=== PATIENT | female | born 1940 | race Caucasian/White ===

== ENCOUNTER 2022-09-02 13:15 | Inpatient (IN) ==
[~2022-09-02 13:15] MED LIST: Buffered Lidocaine 1% SYRIN 1 ml INTRADERM ONE; Ertapenem 1 GM in NS 0.9% 50 ML BAG IVPB SCH; HYDROmorphone 1 MG/1 ML SYRINGE IV PRN; Lactated Ringers 1000 ml BAG 1,000 ML IV SCH; Lidocaine 2% PF 5 ML VIAL ONE; Naloxone 0.4 mg VIAL 0.4 mg/ml 1 ml VIAL IV PRN; Ondansetron 4 mg VIAL 2 MG/ML 2 ml VIAL IV PRN; Propofol 10 MG/ML 20 ML BTL ONE; Rocuronium 50 mg VIAL 10 mg/ml 5 ml VIAL (50 mg) ONE; fentaNYL 100 mcg/2 ml 50 MCG/ML VIAL IV PRN; fentaNYL 250 mcg/5 ml 50 MCG/ML 5 ml VIAL (250 MCG) ONE
[2022-09-02] MEDS ORDERED: Heparin 5000 UNITS/ML 1 mL VIAL ONE (13:25)
[2022-09-02] MEDS ORDERED: Dexmedetomidine 200 mcg/2 ml 2 ml VIAL (200 mcg) ONE (13:31)
[2022-09-02] MEDS ORDERED: fentaNYL 100 mcg/2 ml 50 MCG/ML VIAL ONE (13:31)
[2022-09-02] MEDS ORDERED: Midazolam 2 mg/2 ml VIAL 1 mg/ml 2 ml VIAL (2 mg) ONE (13:32)
[2022-09-02] MEDS ORDERED: Bupivacaine 0.25% SDV 30 ML ONE (13:35)
[2022-09-02] MEDS ORDERED: Bupivacaine 0.5% 50 ML MDV VIAL ONE (13:36)
[2022-09-02] MEDS ORDERED: Sterile Water for Inj 20 ML ONE (13:42)
[2022-09-02] MEDS ORDERED: Bupivacaine 0.5% SDV PF 30ML VIAL ONE (13:42)
[2022-09-02 13:53] LABS: ABS Lymphocytes 1.5 10^3/uL (1.0-4.8); ABS Monocytes 0.5 10^3/uL (0.0-0.9); Eosinophil % 0.2 %; Hematocrit 33.4 % (35-45); Hemoglobin 11.2 g/dL (11.5-14.3); Lymphocyte % 14.5 %; Mean Corpuscular Hemoglobin 28.9 pg (27-33); Mean Corpuscular Hgb Conc 33.4 g/dL (31-36); Mean Corpuscular Volume 86.6 fL (80-97); Mean Platelet Volume 7.6 fL (7.5-11.2); Platelet Count 405 10^3/uL (150-450); Red Blood Count 3.86 10^6/uL (3.63-4.92); Red Cell Distribution Width 18.1 % (12-17); White Blood Count 10.1 10^3/uL (3.8-11.8)
[2022-09-02] MEDS ORDERED: Lidocaine 1% w EPI 1:100,000 MDV 20 ML VIAL ONE (14:18)
[2022-09-02] MEDS ORDERED: Bupivacaine 0.25% w/EPI 10 ML SDV ONE (14:19)
[2022-09-02] MEDS ORDERED: Lidocaine 1% VIAL 10 MG/ML VIAL 30 ML ONE (14:20)
[2022-09-02 14:46] LABS: Rapid COVID-19 Molecular Undetected (Undetected)
[2022-09-02] MEDS ORDERED: Glycopyrrolate IV 0.2 MG/ML 1 ML VIAL ONE (16:00)
[2022-09-02] MEDS ORDERED: Dexamethasone IV 4 MG/ML VIAL 1 ml VIAL ONE (16:42)
[2022-09-02] MEDS ORDERED: Ondansetron 4 mg VIAL 2 MG/ML 2 ml VIAL ONE (16:42)
[2022-09-02] MEDS ORDERED: HYDROmorphone 0.5 MG/0.5 ML SYRINGE IV SLOW PU PRN (18:47)
[2022-09-02] MEDS: Ondansetron 4 mg VIAL 2 MG/ML 2 ml VIAL IV PRN (20:51)
[2022-09-03 06:20] LABS: ABS Lymphocytes 0.8 10^3/uL (1.0-4.8); ABS Monocytes 0.4 10^3/uL (0.0-0.9); ABS Nucleated RBC 0.01 10^3/ul; Hematocrit 33.4 % (35-45); Hemoglobin 11.3 g/dL (11.5-14.3); Lymphocyte % 6.8 %; Mean Corpuscular Hemoglobin 29.2 pg (27-33); Mean Corpuscular Volume 85.8 fL (80-97); Mean Platelet Volume 8.1 fL (7.5-11.2); Platelet Count 378 10^3/uL (150-450); Red Blood Count 3.89 10^6/uL (3.63-4.92); Red Cell Distribution Width 18.2 % (12-17); White Blood Count 11.2 10^3/uL (3.8-11.8)
[2022-09-03 06:35] LABS: Calcium 8.7 mg/dL (8.6-10.3); Creatinine, Serum 0.91 mg/dL (0.51-0.95); Potassium 4.3 mmol/L (3.5-5.0); eGFR CKD-EPI 62.2 (>60)
[2022-09-03 08:46] LABS: Calcium 8.4 mg/dL (8.6-10.3); Creatinine, Serum 0.85 mg/dL (0.51-0.95); Potassium 4.4 mmol/L (3.5-5.0); eGFR CKD-EPI 67.5 (>60)
[2022-09-03] MEDS: Enoxaparin 40 MG/0.4 ML SYR SUBCUT SCH (08:49)
[2022-09-03] MEDS ORDERED: Lactated Ringers 1000 ml BAG 1,000 ML IV SCH (11:00)
[2022-09-03 16:30] LABS: Calcium 8.5 mg/dL (8.6-10.3); Creatinine, Serum 0.92 mg/dL (0.51-0.95); Potassium 4.3 mmol/L (3.5-5.0); eGFR CKD-EPI 61.4 (>60)
[2022-09-03 21:31] LABS: Calcium 8.1 mg/dL (8.6-10.3); Creatinine, Serum 0.89 mg/dL (0.51-0.95); Potassium 4.3 mmol/L (3.5-5.0); eGFR CKD-EPI 63.9 (>60)
[2022-09-03 21:33] LABS: Urine Osmo 325 mOsm/kg (150-1150)
[2022-09-03 21:40] LABS: Osmolality Serum 261 mOsm/kg (275-295)
[2022-09-04 03:17] LABS: Calcium 8.2 mg/dL (8.6-10.3); Creatinine, Serum 0.81 mg/dL (0.51-0.95); Potassium 4.3 mmol/L (3.5-5.0); eGFR CKD-EPI 71.5 (>60)
[2022-09-04] MEDS: Enoxaparin 40 MG/0.4 ML SYR SUBCUT SCH (08:54)
[2022-09-04] MEDS: Ondansetron 4 mg VIAL 2 MG/ML 2 ml VIAL IV PRN (09:15)
[2022-09-04 09:50] LABS: Calcium 8.4 mg/dL (8.6-10.3); Potassium 4.3 mmol/L (3.5-5.0)
[2022-09-04 09:55] LABS: Creatinine, Serum 0.72 mg/dL (0.51-0.95); eGFR CKD-EPI 82.4 (>60)
[2022-09-04] MEDS ORDERED: Ure-Na 15 GM POWD.PACK PO SCH (13:00)
[2022-09-05 06:55] LABS: Calcium 8.5 mg/dL (8.6-10.3); Creatinine, Serum 0.67 mg/dL (0.51-0.95); Potassium 4.3 mmol/L (3.5-5.0); eGFR CKD-EPI 86.1 (>60)
[2022-09-05] MEDS: Enoxaparin 40 MG/0.4 ML SYR SUBCUT SCH (09:48)
[2022-09-05 11:23] LABS: ABS Eosinophils 0.1 10^3/uL (0.0-0.5); ABS Lymphocytes 2.2 10^3/uL (1.0-4.8); ABS Monocytes 0.9 10^3/uL (0.0-0.9); ABS Neutrophils 7.6 10^3/uL (1.5-7.6); ABS Nucleated RBC 0.01 10^3/ul; Eosinophil % 0.9 %; Hematocrit 31.9 % (35-45); Hemoglobin 10.3 g/dL (11.5-14.3); Lymphocyte % 20.3 %; Mean Corpuscular Hemoglobin 29.1 pg (27-33); Mean Corpuscular Hgb Conc 32.4 g/dL (31-36); Mean Corpuscular Volume 89.7 fL (80-97); Mean Platelet Volume 8.6 fL (7.5-11.2); Nucleated Red Blood Cells % 0.1 /100 WBC (0.0-0.4); Platelet Count 326 10^3/uL (150-450); Red Blood Count 3.55 10^6/uL (3.63-4.92); Red Cell Distribution Width 19.2 % (12-17); White Blood Count 10.8 10^3/uL (3.8-11.8)
[2022-09-05 14:55] LABS: Calcium 8.7 mg/dL (8.6-10.3); Creatinine, Serum 0.76 mg/dL (0.51-0.95); Potassium 4.1 mmol/L (3.5-5.0); eGFR CKD-EPI 77.2 (>60)
[2022-09-06 06:05] LABS: ABS Eosinophils 0.3 10^3/uL (0.0-0.5); ABS Monocytes 0.8 10^3/uL (0.0-0.9); ABS Neutrophils 8.4 10^3/uL (1.5-7.6); Eosinophil % 2.1 %; Hematocrit 26.9 % (35-45); Hemoglobin 9.2 g/dL (11.5-14.3); Lymphocyte % 23.7 %; Mean Corpuscular Hemoglobin 29.3 pg (27-33); Mean Corpuscular Hgb Conc 34.1 g/dL (31-36); Mean Platelet Volume 8.1 fL (7.5-11.2); Platelet Count 300 10^3/uL (150-450); Red Blood Count 3.12 10^6/uL (3.63-4.92); White Blood Count 12.5 10^3/uL (3.8-11.8)
[2022-09-06 06:35] LABS: Calcium 8.3 mg/dL (8.6-10.3); Creatinine, Serum 0.71 mg/dL (0.51-0.95); Potassium 4.1 mmol/L (3.5-5.0); eGFR CKD-EPI 83.8 (>60)
[2022-09-07 09:22] LABS: ABS Eosinophils 0.3 10^3/uL (0.0-0.5); ABS Lymphocytes 2.3 10^3/uL (1.0-4.8); ABS Monocytes 0.6 10^3/uL (0.0-0.9); ABS Nucleated RBC 0.01 10^3/ul; Eosinophil % 2.3 %; Hematocrit 31.5 % (35-45); Hemoglobin 10.7 g/dL (11.5-14.3); Lymphocyte % 18.7 %; Mean Corpuscular Hemoglobin 29.3 pg (27-33); Mean Corpuscular Hgb Conc 34.1 g/dL (31-36); Mean Corpuscular Volume 85.9 fL (80-97); Mean Platelet Volume 8.2 fL (7.5-11.2); Platelet Count 374 10^3/uL (150-450); Red Blood Count 3.67 10^6/uL (3.63-4.92); Red Cell Distribution Width 19.4 % (12-17); White Blood Count 12.3 10^3/uL (3.8-11.8)
[2022-09-07 09:32] LABS: Calcium 9.2 mg/dL (8.6-10.3); Creatinine, Serum 0.76 mg/dL (0.51-0.95); Potassium 4.5 mmol/L (3.5-5.0); eGFR CKD-EPI 77.2 (>60)
[2022-09-07 11:21] VITALS: BP 103/61
== END 2022-09-07 14:32 | disposition home or self-care (01) | DRG 330 ==
LOC: AA 13:15 → SSU 20:26
PROVIDERS: ADMIT Surgery; ATTEND Surgery

== ENCOUNTER 2024-03-08 07:14 | Inpatient (IN) ==
[~2024-03-08 07:14] MED LIST changes: -Buffered Lidocaine 1% SYRIN 1 ml INTRADERM ONE; -HYDROmorphone 1 MG/1 ML SYRINGE IV PRN; -Lactated Ringers 1000 ml BAG 1,000 ML IV SCH; -Lidocaine 2% PF 5 ML VIAL ONE; +Metoclopramide 5 MG/ML VIAL (10 mg) IV PRN; +NS 0.45% 1000 ml BAG 1,000 ML IV SCH; -Propofol 10 MG/ML 20 ML BTL ONE; -Rocuronium 50 mg VIAL 10 mg/ml 5 ml VIAL (50 mg) ONE; -fentaNYL 250 mcg/5 ml 50 MCG/ML 5 ml VIAL (250 MCG) ONE
[2024-03-08] MEDS: Scopolamine 1 mg/72hr PATCH TRANSDERM ONE (07:46)
[2024-03-08] MEDS ORDERED: Heparin 5000 UNITS/ML 1 mL VIAL ONE (07:54)
[2024-03-08] MEDS: Buffered Lidocaine 1% SYRIN 1 ml INTRADERM ONE (08:23)
[2024-03-08] MEDS: Lactated Ringers 1000 ml BAG 1,000 ML IV SCH (08:24)
[2024-03-08 08:25] LABS: Rapid COVID-19 Molecular Undetected (Undetected)
[2024-03-08] MEDS ORDERED: Lidocaine 2% PF 5 ML VIAL ONE (10:10)
[2024-03-08] MEDS ORDERED: Rocuronium 50 mg VIAL 10 mg/ml 5 ml VIAL (50 mg) ONE (10:10)
[2024-03-08] MEDS ORDERED: Propofol 10 MG/ML 20 ML BTL ONE (10:10)
[2024-03-08] MEDS ORDERED: fentaNYL 250 mcg/5 ml 50 MCG/ML 5 ml VIAL (250 MCG) ONE (10:10)
[2024-03-08] MEDS ORDERED: Bupivacaine 0.25% EPI 200,000 30 ML SDV ONE (11:01)
[2024-03-08] MEDS ORDERED: Midazolam 2 mg/2 ml VIAL 1 mg/ml 2 ml VIAL (2 mg) ONE (11:35)
[2024-03-08] MEDS ORDERED: Dexamethasone IV 4 MG/ML VIAL 1 ml VIAL ONE (12:15)
[2024-03-08] MEDS ORDERED: Ondansetron 4 mg VIAL 2 MG/ML 2 ml VIAL ONE (12:15)
[2024-03-08] MEDS ORDERED: fentaNYL 100 mcg/2 ml 50 MCG/ML VIAL ONE (12:16)
[2024-03-08] MEDS ORDERED: Glycopyrrolate IV 0.2 MG/ML 1 ML VIAL ONE (12:16)
[2024-03-08] MEDS ORDERED: Sevoflurane BOTTLE ONE (13:40)
[2024-03-08] MEDS ORDERED: Ondansetron 4 mg VIAL 2 MG/ML 2 ml VIAL IV PRN (14:42)
[2024-03-08] MEDS ORDERED: HYDROmorphone 0.5 MG/0.5 ML SYRINGE IV SLOW PU PRN (14:46)
[2024-03-08] MEDS ORDERED: HYDROmorphone 1 MG/1 ML SYRINGE IV SLOW PU PRN (14:47)
[2024-03-08] MEDS: Acetaminophen IV 1 GM/100ML 1,000 MG/100 ML BAG IV ONE (16:36)
[2024-03-08] MEDS: Acetaminophen IV 1 GM/100ML 1,000 MG/100 ML BAG IV SCH (22:10)
[2024-03-09 06:07] LABS: ABS Lymphocytes 1.6 10^3/uL (1.0-4.8); ABS Monocytes 0.9 10^3/uL (0.0-0.9); ABS Neutrophils 7.8 10^3/uL (1.5-7.6); Hematocrit 31.9 % (35-45); Hemoglobin 10.9 g/dL (11.5-14.3); Lymphocyte % 15.8 %; Mean Corpuscular Hemoglobin 31.6 pg (27-33); Mean Corpuscular Hgb Conc 34.2 g/dL (31-36); Mean Corpuscular Volume 92.3 fL (80-97); Mean Platelet Volume 8.9 fL (7.5-11.2); Platelet Count 297 10^3/uL (150-450); Red Blood Count 3.45 10^6/uL (3.63-4.92); Red Cell Distribution Width 14.1 % (12-17); White Blood Count 10.4 10^3/uL (3.8-11.8)
[2024-03-09 06:35] LABS: Albumin 3.4 g/dL (3.5-5.7); Creatinine, Serum 0.98 mg/dL (0.51-0.95); Globulin 1.7 g/dL (2-4); Total Bilirubin 0.7 mg/dL (0.2-1.0); Total Protein 5.1 g/dL (6.4-8.9); eGFR CKD-EPI 56.6 (>60)
[2024-03-09] MEDS: Lactated Ringers 1000 ml BAG 500 ML IV ONE (08:02)
[2024-03-09] MEDS: Enoxaparin 40 MG/0.4 ML SYR SUBCUT SCH (10:11)
[2024-03-10 05:57] LABS: Calcium 8.2 mg/dL (8.6-10.3); Creatinine, Serum 0.81 mg/dL (0.51-0.95); Potassium 3.8 mmol/L (3.5-5.0); eGFR CKD-EPI 71.1 (>60)
[2024-03-11 11:30] VITALS: BP 138/64
== END 2024-03-11 12:15 | disposition home or self-care (01) | DRG 330 ==
LOC: AA 07:14 → SSU 14:42
PROVIDERS: ADMIT Surgery; ATTEND Surgery